=== PATIENT | female | born 1990 | race American Indian/Alaskan Native ===

== ENCOUNTER 2020-12-23 22:02 | Outpatient (CLI) | payer MEDICAID ==
[2020-12-23 23:48] VITALS: BP 125/65
== END 2020-12-23 23:54 | disposition home or self-care (01) ==
LOC: TRG 22:02
PROVIDERS: ATTEND Obstetrics & Gynecology
DX: Z34.92 Encounter for supervision of normal pregnancy, unspecified, second trimester (principal); Z3A.25 25 weeks gestation of pregnancy
CPT/HCPCS: 59025

== ENCOUNTER 2021-03-23 15:21 | Inpatient (IN) | payer MEDICAID ==
[2021-03-23] MEDS ORDERED: LOPERAMIDE 2 MG CAP PO PRN (17:00)
[2021-03-23] MEDS ORDERED: fentaNYL 100 MCG/2 ML INJ IV PRN (17:00)
[2021-03-23] MEDS ORDERED: TERBUTALINE 1 MG/1 ML INJ SUB-Q PRN (17:00)
[2021-03-23] MEDS ORDERED: BUTORPHANOL 2 MG/1 ML INJ IV PRN (17:00)
[2021-03-23] MEDS ORDERED: MINERAL OIL 30 ML ORAL LIQD PO PRN (17:00)
[2021-03-23] MEDS ORDERED: LIDOCAINE (2%) 20 MG/1 ML VIAL 20 ML MDV INFILTRATI ONE (17:00)
[2021-03-23] MEDS ORDERED: ePHEDrine SULFATE 50 MG/1 ML INJ IV PRN (17:00)
[2021-03-23] MEDS ORDERED: miSOPROStol 200 MCG TAB PR PRN (17:00)
[2021-03-23] MEDS ORDERED: OXYTOCIN 10 UNIT/1 ML INJ IM PRN (17:00)
[2021-03-23] MEDS ORDERED: CARBOPROST TROMETHAMINE 250 MCG/1 ML INJ IM PRN (17:00)
[2021-03-23] MEDS ORDERED: METHYLERGONOVINE MALEATE 0.2 MG/ML VIAL IM PRN (17:00)
[2021-03-23] MEDS ORDERED: ONDANSETRON 4 MG/2 ML INJ IV PRN (17:00)
[2021-03-23] MEDS ORDERED: DINOPROSTONE 10 MG VAG SUPP VG NR (17:08)
[2021-03-23] MEDS ORDERED: AMPICILLIN/NS 2 GM/100 ML 2 GM/100 ML BAG IV ONE (17:08)
--- NOTE | 2021-03-23 17:21 | History and Physical Report ---
History of Present Illness Date of examination: 03/23/21 Date of admission: 03/23/21 15:21 Chief complaint: IOL secondary to type II DM History of present illness: 30 yo, @ 38.1 wks, initiated care with [facility] at 11.1 wks gestation. Her has been complicated by DMII, GBS+ status, heart murmur, subclinical hyperthyroidism and in 2010 d/t diaphragmatic hernia. Presents to [facility] for IOL secondary to DMII. Labs: O+, antibody negative, rubella immune, VDRL negative, urine culture negative, HBsAg negative, HIV negative, HSV2 negative, GC/Chlamydia/Trich negative, HGB A1c 5.3%, GBS positive. Past History Past Medical History: no pertinent history, diabetes, other (heart murmur; fibroid uterus; kidney problems) Past Surgical History: other (Kidney surgery) BENEFITS TECHNICIAN History: abnormal PAP smear (08/17/2014), chlamydia Family/Genetic History: diabetes, hypertension, stroke, cancer, other (asthma) - Obstetrical History Expected Date of Delivery: 04/05/21 Actual Gestation: 38 Week(s) 1 Day(s) : 5 Para: 3 Hx # Term Pregnancies: 3 Number of Pregnancies: 0 Spontaneous Abortions: 1 Induced : 0 Number of Living Children: 2 #1 Infant Gender: Female year: 2,011 Method of Delivery: Vaginal Gestational age at delivery: 40 Complications: other (Diaphragmatic hernia; of bacteria) #2 Gender: Male year: 2,013 Birthweight: 3.714 kg Method of Delivery: Vaginal Gestational age at delivery: 41 #3 Gender: Female year: 2,016 Birthweight: 3.232 kg Method of Delivery: Vaginal Gestational age at delivery: 40 Complications: none Medications and Allergies Allergies Allergy/AdvReac Type Severity Reaction Status Date / Time peanut Allergy Mild Rash Verified 07/05/16 11:19 Home Medications Medication Instructions Recorded Confirmed Last Taken Type Vitamin 1 tab PO DAILY 05/29/15 07/05/16 07/04/16 13:00 History 1 Docusate Sodium [Colace] 100 mg PO BID PRN #60 capsule 07/07/16 Unknown Rx Ferrous Sulfate [Feosol 325 MG tab] 325 mg PO TID #90 tablet 07/07/16 Unknown Rx HYDROcodone/APAP 5-325 [[place] 1 each PO Q6HR PRN #30 tablet 07/07/16 Unknown Rx 5/325] Ibuprofen [Motrin 800 MG tab] 800 mg PO Q8HR PRN #30 tablet 07/07/16 Unknown Rx Active Meds: Active Medications Mineral Oil (Mineral Oil 30 Ml Oral Liqd) 30 ml PO QHS PRN PRN Reason: Constipation Terbutaline Sulfate (Terbutaline 1 Mg/1 Ml Inj) 0.25 mg SUB-Q ONCE PRN PRN Reason: Hyperstimulation/Hypertonicity Review of Systems All systems: negative - Vital Signs Vital signs: Vital Signs Pulse BP 79 119/64 03/23/21 15:50 03/23/21 15:50 Temp Pulse Resp BP Pulse Ox 98.2 F 79 16 119/64 03/23/21 16:31 03/23/21 16:31 03/23/21 16:31 03/23/21 16:31 - Physical Exam Breasts: Positive: normal Cardiovascular: Regular rate Lungs: Positive: Normal air movement Abdomen: Positive: other (gravid) Genitourinary (Female): Positive: normal external genitalia, normal perenium Vagina: Positive: normal moisture Uterus: Positive: enlarged (S=D) Extremities: Positive: edema Deep Tendon Reflex Grade: Normal +2 - Obstetrical FHR: category 1 Cervical Dilatation: 0 (vertex) Cervical Effacement Percentage: 20 station: -4 Uterine Contraction Pattern: Absent Uterine Tone Measurement Phase: Resting Results Abnormal lab results 03/23/21 Range/Units 16:04 POC Glucose 137 H (70-105) mg/dL All other labs normal. Assessment and Plan - Patient Problems (1) Diabetes Current Visit: Yes Status: Acute Qualifiers: Diabetes mellitus type: type 2 Diabetes mellitus complication status: without complication Plan to address problem: Admit to L & D Accu-checks q 6 hrs Cervidil vaginally as tolerated Pain meds as desired per orders Anticipate (2) Encounter for induction of labor Current Visit: Yes Status: Acute (3) Positive GBS test Current Visit: Yes Status: Acute Plan to address problem: GBS prophylaxis (4) Obesity Current Visit: No Status: Acute Qualifiers: Obesity type: unspecified obesity type Qualified Code(s): E66.9 - Obesity, unspecified
[2021-03-23] MEDS ORDERED: OXYTOCIN DRIP 30 UNITS/500 ML BAG IV SCH (18:00)
[2021-03-23] MEDS: LACTATED RINGERS 1,000 ML IV SCH (18:50)
[2021-03-23 19:10] LABS: Hematocrit 35.6 % (30.3-42.9); Hemoglobin 12.2 gm/dl (10.1-14.3); Mean Corpuscular HGB Conc 34 % (30-34); Mean Corpuscular Volume 85 fl (79-97); Platelet Count 274 K/mm3 (140-440); Red Blood Count 4.19 M/mm3 (3.65-5.03); Red Cell Distribution Width 14.5 % (13.2-15.2)
--- NOTE | 2021-03-24 08:38 | Progress Note ---
Assessment and Plan - Patient Problems (1) Diabetes Current Visit: Yes Status: Acute Qualifiers: Diabetes mellitus type: type 2 Diabetes mellitus complication status: without complication Plan to address problem: Contine Accu-checks q 6 hrs May shower/ eat, then initiate Pitocin titration as tolerated Pain meds as desired per orders Anticipate (2) Encounter for induction of labor Current Visit: Yes Status: Acute (3) Positive GBS test Current Visit: Yes Status: Acute Plan to address problem: GBS prophylaxis (4) Obesity Current Visit: No Status: Acute Qualifiers: Obesity type: unspecified obesity type Qualified Code(s): E66.9 - Obesity, unspecified Subjective - Subjective Date of service: 03/24/21 Principal diagnosis: IOL secondary to type II DM Interval history: 30 yo, @ 38.1 wks, initiated care with [facility] at 11.1 wks gestation. Her has been complicated by DMII, GBS+ status, heart murmur, subclinical hyperthyroidism and in 2010 d/t diaphragmatic hernia. Presents to [facility] for IOL secondary to DMII. Labs: O+, antibody negative, rubella immune, VDRL negative, urine culture negative, HBsAg negative, HIV negative, HSV2 negative, GC/Chlamydia/Trich negative, HGB A1c 5.3%, GBS positive. Patient reports: movement normal, contractions (irregular), no vaginal bleeding Objective - Vital Signs Vital Signs: Vital Signs - 12hr 03/24/21 06:47 Pulse Rate 68 Blood Pressure 119/65 - Exam Breasts: deferred Cardiovascular: Regular rate Lungs: Normal air movement FHR: category 1 Uterine Contraction Monitor Mode: External Cervical Dilatation: 2 (per RN) Cervical Effacement Percentage: 60 station: -3 Uterine Contraction Frequency (min): 4-6 Uterine Contraction Pattern: Irregular Uterine Tone Measurement Phase: Resting Uterine Contraction Intensity: Mild Extremities: edema Deep Tendon Reflex Grade: Normal +2 - Labs Labs: Abnormal Labs 03/23/21 03/24/21 16:04 02:42 POC Glucose 137 H 156 H Laboratory Results - last 24 hr 03/23/21 03/23/21 03/23/21 16:00 16:00 16:04 WBC 6.7 RBC 4.19 Hgb 12.2 Hct 35.6 MCV 85 MCH 29 MCHC 34 RDW 14.5 Plt Count 274 POC Glucose 137 H Blood Type O POSITIVE Antibody Screen Negative 03/24/21 03/24/21 02:42 06:27 WBC RBC Hgb Hct MCV MCH MCHC RDW Plt Count POC Glucose 156 H 96 Blood Type Antibody Screen
[2021-03-24] MEDS ORDERED: miSOPROStol 25 MCG TAB PO PRN (10:30)
[2021-03-24] MEDS: hydrOXYzine PAMOATE 25 MG CAP PO PRN ×2 (11:40→20:01)
[2021-03-24] MEDS: LACTATED RINGERS 1,000 ML IV SCH ×2 (11:42→19:22)
[2021-03-24] MEDS: OXYTOCIN DRIP 30 UNITS/500 ML BAG IV SCH (17:54)
[2021-03-24] MEDS ORDERED: DEXTROSE 50% IN WATER (25GM) 50 ML SYRINGE IV PRN (19:33)
[2021-03-24] MEDS ORDERED: INSULIN REGULAR, HUMAN 100 UNITS/1 ML SUB-Q SCH (20:00)
[2021-03-25] MEDS: LACTATED RINGERS 1,000 ML IV SCH ×2 (05:03→17:46)
[2021-03-25] MEDS: AMPICILLIN/NS 1 GM/50 ML 1 GM/50 ML BAG IV SCH ×3 (10:28→18:22)
[2021-03-25] MEDS: OXYTOCIN DRIP 30 UNITS/500 ML BAG IV SCH (10:28)
--- NOTE | 2021-03-25 11:21 | Event Note ---
Date: 03/25/21 Amniotomy performed with evidence of clear fluid. Cervical exam of 4 cm and 60% effaced. Patient is undergoing induction for type 2 diabetes and history of a .
--- NOTE | 2021-03-25 19:48 | Procedure Note ---
OB Delivery Note - Delivery Date of Delivery: 03/25/21 Estimated blood loss: other (350 cc) - Vaginal Delivery presentation: vertex Delivery induction: oxytocin Delivery monitor: external FHT, external uterine Route of delivery: Delivery placenta: spontaneous Delivery cord: 3 umbilical vessels Episiotomy: none Delivery laceration: none Anesthesia: none Delivery comments: Called to patient room to deliver placenta. Patient's provider en route for delivery. Nurse states baby was born spontaneously at 19:19; male weighing 6 lb. 12 oz with apgars of 8/9. Upon arrival in room, baby was at radiant warmer and was crying vigorously. Placenta delivered spontaneously and intact by jackson mechanism. EBL 350 cc. Pitocin given IV after delivery of placenta and cytotec 800 micrograms given rectally for uterine atony. Fundus firmed with massage, Pitocin, and cytotec. No lacerations noted. Vaginal sweep negative. Mother and baby stable.
[2021-03-25] MEDS ORDERED: ACETAMINOPHEN 325 MG TAB PO PRN (19:49)
[2021-03-25] MEDS ORDERED: IBUPROFEN 600 MG TAB PO SCH (20:00)
[2021-03-25] MEDS ORDERED: WITCH HAZEL/ GLYCERIN PAD TP PRN (21:37)
[2021-03-25] MEDS ORDERED: PROMETHAZINE 25 MG TAB PO PRN (21:37)
[2021-03-25] MEDS ORDERED: LANOLIN/ZINC/DIMETHICONE (LANSINOH) 7 GM TP PRN (21:37)
[2021-03-25] MEDS ORDERED: PROMETHAZINE 25 MG RECT SUPP PR PRN (21:37)
[2021-03-25] MEDS ORDERED: HYDROcodone/ACETAMINOPHEN 5-325 MG TAB PO PRN (21:37)
[2021-03-25] MEDS ORDERED: diphenhydrAMINE 25 MG CAP PO PRN (21:37)
[2021-03-25] MEDS ORDERED: ONDANSETRON 4 MG/2 ML INJ IV PRN (21:37)
[2021-03-25] MEDS ORDERED: oxyCODONE /ACETAMINOPHEN 5-325MG TAB PO PRN (21:37)
[2021-03-25] MEDS ORDERED: MAGNESIUM HYDROXIDE (MOM) ORAL LIQD UDC PO PRN (21:37)
[2021-03-25] MEDS ORDERED: KETOROLAC 30 MG/1 ML INJ IV PRN (21:37)
[2021-03-25] MEDS: IBUPROFEN 600 MG TAB PO SCH (22:47)
[2021-03-25] MEDS: DOCUSATE SODIUM 100 MG CAP PO SCH (22:48)
[2021-03-26] MEDS: INSULIN REGULAR, HUMAN 100 UNITS/1 ML SUB-Q SCH ×4 (00:03→17:03)
[2021-03-26] MEDS: IBUPROFEN 600 MG TAB PO SCH ×4 (05:34→22:30)
[2021-03-26 08:56] LABS: Hemoglobin 10.9 gm/dl (10.1-14.3)
[2021-03-26] MEDS: DOCUSATE SODIUM 100 MG CAP PO SCH ×2 (09:19→22:30)
[2021-03-27] MEDS: IBUPROFEN 600 MG TAB PO SCH ×3 (04:30→15:51)
[2021-03-27] MEDS: DOCUSATE SODIUM 100 MG CAP PO SCH (10:40)
[2021-03-27] MEDS: INSULIN REGULAR, HUMAN 100 UNITS/1 ML SUB-Q SCH (12:00)
--- NOTE | 2021-03-27 14:07 | Progress Note ---
Assessment and Plan PPD 2 s/p . Doing well. Plan for discharge on today. Follow up in office Subjective - Subjective Date of service: 03/27/21 Principal diagnosis: IOL secondary to type II DM Patient reports: appetite normal, voiding normally, pain well controlled, ambulating normally : doing well Objective - Vital Signs Latest vital signs: Vital Signs Temp Pulse Resp BP BP Pulse Ox 03/27/21 07:49 98.2 F 62 20 145/84 100 03/26/21 22:24 98.2 F 65 20 118/70 99 03/26/21 15:36 97.9 F 67 18 110/58 100 Intake and Output 03/26/21 03/27/21 03/27/21 22:59 06:59 14:59 Intake Total 240 Balance 240 Intake: Oral 240 Other: Total, Intake Amount 240 # Voids Void 1 1 - Exam Breasts: Present: deferred Cardiovascular: Present: Regular rate, Normal S1, Normal S2 Lungs: Present: Clear to auscultation, Normal air movement Abdomen: Present: normal appearance, soft Uterus: Present: normal, firm Extremities: Present: normal - Labs Labs: Abnormal lab results 03/26/21 03/26/21 03/27/21 Range/Units 16:33 22:17 12:16 POC Glucose 142 H 107 H 106 H (70-105) mg/dL
--- NOTE | 2021-03-27 14:09 | Discharge Summary ---
Providers - Providers Date of Admission: 03/23/21 15:21 Date of discharge: 03/27/21 Attending physician: ASHLEY JACKSON Primary care physician: MARCUS BROWN Hospitalization Reason for admission: induction of labor Delivery: Episiotomy: none Laceration: none Other procedures: none complications: none Discharge diagnosis: IUP at term delivered [place] baby: male Condition at discharge: Good Disposition: DC-01 TO HOME OR SELFCARE Plan - Discharge Medications Prescriptions: Ibuprofen [Motrin] 800 mg PO Q8HR PRN #40 tablet PRN Reason: Pain, Mild (1-3) HYDROcodone/APAP 5-325 [[place] 5/325] 1 each PO Q6HR PRN #15 tablet PRN Reason: Pain - Provider Discharge Summary Activity: routine, no sex for 6 weeks, no heavy lifting 4 weeks, no strenuous exercise Diet: routine Instructions: routine Additional instructions: [] Smoking cessation referral if applicable(refer to patient education folder for contact #) [] Refer to [facility] Booklet Call your doctor immediately for: * Fever > 100.5 * Heavy vaginal bleeding ( >1 pad per hour) * Severe persistent headache * Shortness of breath * Reddened, hot, painful area to leg or breast * Drainage or odor from incision. * Keep incision clean and dry at all times and follow doctor's instructions regarding bathing/showering - Follow up plan Follow up: MARCUS BROWN MD [Primary Care Provider] - 6 Weeks
[2021-03-27 16:11] VITALS: BP 120/80
== END 2021-03-27 17:05 | disposition home or self-care (01) | DRG 774 ==
LOC: LD 15:21 → OB 03-25 21:33
PROVIDERS: ADMIT Obstetrics & Gynecology; ATTEND Obstetrics & Gynecology
PROC: 10908ZC Drainage of Amniotic Fluid, Therapeutic from Products of Conception, Via Natural or Artificial Opening Endoscopic (ICD-10-PCS; principal; 2021-03-25)
PROC: 10E0XZZ Delivery of Products of Conception, External Approach (ICD-10-PCS; 2021-03-25)
PROC: 3E033VJ Introduction of Other Hormone into Peripheral Vein, Percutaneous Approach (ICD-10-PCS; 2021-03-25)
DX: O24.12 Pre-existing type 2 diabetes mellitus, in childbirth (principal); O99.824 Streptococcus B carrier state complicating childbirth; Z20.822 Contact with and (suspected) exposure to COVID-19; E11.9 Type 2 diabetes mellitus without complications; O99.284 Endocrine, nutritional and metabolic diseases complicating childbirth; E05.80 Other thyrotoxicosis without thyrotoxic crisis or storm; O99.214 Obesity complicating childbirth; E66.9 Obesity, unspecified; Z3A.38 38 weeks gestation of pregnancy; Z37.0 Single live birth; Z91.010 Allergy to peanuts; Z83.3 Family history of diabetes mellitus; Z82.3 Family history of stroke; Z80.9 Family history of malignant neoplasm, unspecified; Z82.5 Family history of asthma and other chronic lower respiratory diseases; Z82.49 Family history of ischemic heart disease and other diseases of the circulatory system
CPT/HCPCS: 36415; 59200; 82962; 85014; 85018; 85027; 86850; 86900; 86901; G0378; J0290; J0595; J1815; J2590; J7120; Q0177; U0003

== ENCOUNTER 2021-05-11 09:16 | Day surgery (SDC) | payer MEDICAID ==
[~2021-05-11 09:16] MED LIST: ACETAMINOPHEN 500 MG TAB PO SCH; CELECOXIB 200 MG CAP PO NR; GABAPENTIN 300 MG CAP PO NR; LACTATED RINGERS 1,000 ML IV SCH; MIDAZOLAM 2 MG/2 ML INJ IV NR; SCOPOLAMINE TRANSDERMAL PATCH 72 HR TD NR
--- NOTE | 2021-05-11 10:40 | Anesthesia Day of Surgery ---
Anesthesia Day of Surgery - Day of Surgery Patient Examined: Yes Patient H&P Reviewed: Yes Patient is NPO: Yes
--- NOTE | 2021-05-11 10:40 | Anesthesia Consultation ---
Anesthesia Consult and Med Hx Date of service: 05/11/21 - Airway Anesthetic Teeth Evaluation: Good ROM Head & Neck: Adequate Mental/Hyoid Distance: Adequate Mallampati Class: Class III Intubation Access Assessment: Possibly Difficult - Pre-Operative Health Status ASA Pre-Surgery Classification: ASA2 Proposed Anesthetic Plan: General - Pulmonary Hx Smoking: No Hx Respiratory Symptoms: No Hx Sleep Apnea: No (LOTTIE PRE SCREEN LOW RISK) - Cardiovascular System Hx Hypertension: No - Central Nervous System CVA: No - Endocrine Hx Renal Disease: No Hx Liver Disease: No Hx Non-Insulin Dependent Diabetes: Yes Hx Thyroid Disease: No - Other Systems Hx Obesity: Yes (BMI 33) - Additional Comments Anesthesia Medical History Comments: No hx anesthetic complications.
[2021-05-11] MEDS ORDERED: HYDROmorphone 1 MG/1 ML INJ IV PRN (11:00)
[2021-05-11] MEDS ORDERED: oxyCODONE /ACETAMINOPHEN 5-325MG TAB PO PRN (11:00)
[2021-05-11] MEDS ORDERED: ONDANSETRON 4 MG/2 ML INJ IV PRN (11:00)
--- NOTE | 2021-05-11 11:38 | Short Stay Summary ---
Short Stay Documentation Date of service: 05/11/21 Narrative H&P: 30y/o with undesired fertility. Patient is aware of other contraceptive options. She elects for permanent sterilization. - History Principal diagnosis: Unwanted fertility Past Medical History: diabetes Past Surgical History: Other (renal surgery) Social history: single - Allergies and Medications Current Medications: Allergies peanut Allergy (Mild, Verified 04/25/21 14:39) Rash , itching metoclopramide [From Reglan] Adverse Reaction (Verified 05/11/21 10:10) ANXIETY Home Medications Medication Instructions Recorded Confirmed Last Taken Type Vitamin 1 tab PO DAILY 05/29/15 05/11/21 05/09/21 History Aspirin EC [Halfprin EC] 81 mg PO QDAY 04/25/21 05/11/21 04/27/21 History Active Medications Acetaminophen (Acetaminophen 500 Mg Tab) 1,000 mg PO PREOP JOCELYN Celecoxib (Celecoxib 200 Mg Cap) 200 mg PO PREOP NR Stop: 05/11/21 23:59 Gabapentin (Gabapentin 300 Mg Cap) 300 mg PO PREOP NR Stop: 05/11/21 23:59 Hydromorphone HCl (Hydromorphone 1 Mg/1 Ml Inj) 0.5 mg IV Q10MIN PRN PRN Reason: Pain , Severe (7-10) Stop: 05/11/21 18:00 Lactated Ringer's (Lactated Ringers) 1,000 mls @ 100 mls/hr IV DIRECT JOCELYN Stop: 05/11/21 23:59 Last Admin: 05/11/21 10:25 Dose: 100 mls/hr Documented by: Midazolam HCl (Midazolam 2 Mg/2 Ml Inj) 2 mg IV PREOP NR Stop: 05/11/21 23:59 Ondansetron HCl (Ondansetron 4 Mg/2 Ml Inj) 4 mg IV ONCE PRN PRN Reason: Nausea And Vomiting Stop: 05/11/21 18:00 Oxycodone/Acetaminophen (Oxycodone /Acetaminophen 5-325mg Tab) 1 tab PO ONCE PRN PRN Reason: Pain, Moderate (4-6) Stop: 05/11/21 18:00 Scopolamine (Scopolamine Transdermal Patch 72 Hr) 1 each TD PREOP NR Stop: 05/11/21 23:59 - Physical exam General appearance: no acute distress Integumentary: no rash HEENT: Atraumatic Lungs: Clear to auscultation Breasts: deferred Heart: Regular rate Gastrointestinal: normal Female Genitourinary: deferred Rectal Exam: deferred - Brief post op/procedure progress note Date of procedure: 05/11/21 Pre-op diagnosis: Undesired fertility Post-op diagnosis: same Procedure: Laparoscopic bilateral tubal ligation with Filshie clips Anesthesia: GETA Surgeon: ASHLEY JACKSON Estimated blood loss: minimal Pathology: none Condition: stable - Hospital course Hospital course: The patient was admitted the day of surgery underwent a laparoscopic bilateral tubal ligation. Please see operative note for details of surgery. Postoperative course was uneventful. - Disposition Condition at discharge: Good Disposition: 01 HOME / SELF CARE / HOMELESS Short Stay Discharge Plan Activity: other (Pelvic rest for 1 week) Diet: regular Additional Instructions: Follow-up is not required Follow-up as needed Prescriptions: Ibuprofen [Motrin] 800 mg PO Q8HR PRN #30 tablet PRN Reason: Pain , Severe (7-10) HYDROcodone/APAP 5-325 [[place] 5/325] 1 each PO Q6HR PRN #15 tablet PRN Reason: Pain
[2021-05-11] MEDS ORDERED: BUPIVACAINE/PF (0.5%) 5 MG/1 ML 30 ML VIAL INFILTRATI ONE ×2 (12:13→14:00)
[2021-05-11] MEDS ORDERED: dexAMETHasone 20 MG/5 ML VIAL ONE (12:37)
[2021-05-11] MEDS ORDERED: LIDOCAINE PF 100 MG/5 ML (CARDIAC SYRINGE) IV ONE (12:37)
[2021-05-11] MEDS ORDERED: ONDANSETRON 4 MG/2 ML INJ ONE (12:37)
[2021-05-11] MEDS ORDERED: ROCURONIUM 50 MG/5 ML INJ IV ONE (12:37)
[2021-05-11] MEDS ORDERED: propofoL 200 MG/20 ML VIAL IV ONE (12:38)
[2021-05-11] MEDS ORDERED: fentaNYL 100 MCG/2 ML INJ ONE (12:38)
[2021-05-11] MEDS ORDERED: HYDROmorphone 1 MG/1 ML INJ ONE (13:53)
[2021-05-11] MEDS ORDERED: LACTATED RINGERS 1,000 ML ONE (13:56)
[2021-05-11] MEDS ORDERED: SODIUM CHLORIDE 0.9% IRR 1,500 ML BOTTLE IR ONE (14:01)
[2021-05-11] MEDS ORDERED: SUGAMMADEX SODIUM 200 MG/2 ML VIAL IV ONE (14:08)
[2021-05-11 15:45] VITALS: BP 129/75
--- NOTE | 2021-05-11 15:45 | Operative Report ---
Operative Report Operative Report: Date of surgery: May 11, 2021 Preoperative diagnosis: Unwanted fertility Postoperative diagnosis: Same as above Procedure: Laparoscopic bilateral tubal ligation with Filshie clips Surgeon: Kanwal Roach M.D. Anesthesia: General endotracheal anesthesia Estimated blood loss: Minimal Findings: Normal uterus tubes and ovaries Indication: 30-year-old -0-1-3 with unwanted fertility. Procedure: The patient was taken to the operating room and given general endotracheal anesthesia without complication. The patient is prepped and draped in a normal sterile fashion. A bivalve speculum was placed in the patient's vagina and a single-tooth tenaculum was placed on the anterior lip of the cervix .A uterine acorn manipulator was placed, and the bivalve speculum was then removed. Attention was then turned to the patient's abdomen where a 5 mm infraumbilical skin incision was then made. A Veress needle was placed and peritoneal entry was verified water-filled syringe. Insufflation of the peritoneal cavity was performed with CO2 gas. A 5 mm trocar was placed and the laparoscope was then inserted. The patient was then placed in Trendelenburg. A 7 mm suprapubic skin incision was then made. Under direct visualization a 7 mm trocar was then placed. An additional 5 mm left lateral trocar was also placed. General survey of the patient's abdomen revealed normal uterus tubes and ovaries. The fallopian tube was then followed out to the fimbriated end. A Filshie clip was applied to the ampullary portion of the tube this was performed on the contralateral side as well. The trocars were then removed. The pneumoperitoneum was then released. The 5 mm trocar laparoscope was then removed. The skin incisions were then closed with 4-0 Monocryl. The incisions were injected with quarter percent Marcaine. Dressings were applied to the incision. The vaginal instruments were then removed atraumatically. Then successfully extubated and taken to the recovery room. All sponge laps and needle counts were correct x2.
--- NOTE | 2021-05-11 16:42 | Post Anesthesia Evaluation ---
- Post Anesthesia Evaluation Patient Participated: Yes Airway Patent: Yes Stable Respiratory Function: Yes Nausea/Vomiting: No Temp > 96.8F: Yes Pain Manageable: Yes Adequeate Hydration: Yes Anesthesia Complications: No
== END 2021-05-11 16:10 | disposition home or self-care (01) ==
LOC: OR 09:16
PROVIDERS: ATTEND Obstetrics & Gynecology
DX: Z64.0 Problems related to unwanted pregnancy (principal); F41.9 Anxiety disorder, unspecified; E11.9 Type 2 diabetes mellitus without complications; Z87.440 Personal history of urinary (tract) infections; Z79.82 Long term (current) use of aspirin; Z79.899 Other long term (current) drug therapy; Z88.8 Allergy status to other drugs, medicaments and biological substances; Z98.890 Other specified postprocedural states; Z68.33 Body mass index [BMI] 33.0-33.9, adult
CPT/HCPCS: 58671; 81025; 82962; J1100; J1170; J2001; J2250; J2405; J2704; J3010; J3490; J7120